=== PATIENT | female | born 1985 | race Caucasian/White ===

== ENCOUNTER 2017-02-27 18:46 | Emergency (ER) | payer OTHER ==
[~2017-02-27 18:46] MED LIST: ANSAID100 MG PO; CLEOCIN HCL150 MG PO; IBUPROFEN600 MG PO; KETOPROFEN PO; MULTI VITAMIN1 EACH PO; NO MEDICATIONS; VICODIN 5/1 TAB 5/50 PO; VOLTAREN50 MG PO
== END 2017-02-27 19:00 | disposition left against medical advice (07) ==
LOC: CED 18:46
DX: Z53.21 Procedure and treatment not carried out due to patient leaving prior to being seen by health care provider (principal)

== ENCOUNTER 2017-04-28 15:30 | Emergency (ER) | payer OTHER ==
[~2017-04-28] VITALS: Ht 157.5 cm; Wt 56.7 kg
== END 2017-04-28 19:02 | disposition home or self-care (01) ==
LOC: CED 15:30 → CFTX 15:30
DX: N76.4 Abscess of vulva (principal)
CPT/HCPCS: 87070; 87205; 96372; 99282; J2270